=== PATIENT | female | born 1985 | race Caucasian/White ===

== ENCOUNTER 2022-03-13 20:34 | Emergency (ER) | payer OTHER ==
[2022-03-13 21:03] VITALS: BP 151/99; PULSE 112; TEMP 99.1; BMI 32.9
[2022-03-13] MEDS ORDERED: SODIUM CHLORIDE 0.9% 500 ML INFUS.BAG IV ONE (23:06)
[2022-03-13] MEDS ORDERED: ACETAMINOPHEN 325 MG TABLET (FP) PO ONE (23:06)
[2022-03-13] MEDS ORDERED: DEXAMETHASONE SOD PHOSPHATE 10 MG/1 ML VIAL IVPUSH ONE (23:07)
[2022-03-13 23:32] LABS: HEMOGLOBIN 13.7 GM/dL (10.7-15.3); MEAN PLT VOLUME 9.1 fl (7.5-11.1)
[2022-03-13] MEDS ORDERED: ACETAMINOPHEN 325 MG TABLET (FP) ONE (23:35)
[2022-03-13] MEDS ORDERED: DEXAMETHASONE SOD PHOSPHATE 10 MG/1 ML VIAL ONE (23:35)
[2022-03-13 23:42] LABS: HEMATOCRIT 40.5 % (32.4-45.2); MCH 28.6 pg (25.7-33.7); MCHC 33.8 g/dl (32.0-36.0); MEAN CELL VOLUME 84.6 fl (80-96); PLATELET COUNT 215 10^3/uL (134-434); RBC 4.78 M/mm3 (3.60-5.2); RDW 13.3 % (11.6-15.6); WHITE BLOOD COUNT 9.1 K/mm3 (4.0-10.0)
[2022-03-13 23:57] LABS: ALBUMIN 3.9 g/dl (3.4-5.0); BLOOD UREA NITROGEN 15.2 mg/dL (7-18); CALCIUM 9.2 mg/dL (8.5-10.1)
[2022-03-14 00:01] LABS: CREATININE 0.8 mg/dL (0.55-1.3)
[2022-03-14 00:02] LABS: TOT PROT 7.9 g/dl (6.4-8.2)
[2022-03-14] MEDS ORDERED: AZITHROMYCIN 500 MG TABLET PO ONE (00:14)
[2022-03-14 00:15] LABS: BILIRUBIN,TOTAL 0.3 mg/dL (0.2-1)
[2022-03-14] MEDS ORDERED: AZITHROMYCIN 250 MG TABLET ONE (00:55)
== END 2022-03-14 01:10 | disposition home or self-care (01) ==
LOC: JER 20:34 → JERFT 20:34 → JER 03-14 01:10
PROC: 3E033GC Introduction of Other Therapeutic Substance into Peripheral Vein, Percutaneous Approach (ICD-10-PCS; principal; 2022-03-13)
DX: U07.1 COVID-19 (principal)
CPT/HCPCS: 0241U-QW; 36415; 71046-TC-FY; 80053; 84484; 85027; 87651; 99285-25; J1100

== ENCOUNTER 2023-01-17 19:35 | Emergency (ER) | payer OTHER ==
[2023-01-17 19:54] VITALS: BP 148/101; PULSE 86; RESP 16; TEMP 98.4; BMI 32.9
== END 2023-01-17 19:59 | disposition home or self-care (01) ==
LOC: FER 19:35
DX: R73.9 Hyperglycemia, unspecified (principal); I10 Essential (primary) hypertension
CPT/HCPCS: 99282-25